=== PATIENT | male | born 1990 | race Caucasian/White ===

== ENCOUNTER 2021-01-20 20:32 | Emergency (ER) | payer OTHER ==
[2021-01-20 20:58] VITALS: BP 153/76
--- NOTE | 2021-01-20 21:33 | ED Physician Documentation ---
History of Present Illness - Stated complaint Stated Complaint: LYME DISEASE EXPOSURE - Chief complaint Chief Complaint: General - History obtained from History obtained from: Patient - Additonal information Additional information: He was staying in a cabin with his father, his father evidently got erythema migrans and is being treated for same despite no evident ticks. He does not have any symptoms or rashes but wonders if he should be treated as well. He would also like a Covid test. Review of Systems Constitutional: denies: Fever, Chills Nose: denies: Rhinorrhea / runny nose, Congestion Throat: denies: Sore throat Cardiac: denies: Chest pain / pressure, Palpitations Respiratory: denies: Dyspnea, Cough PD PAST MEDICAL HISTORY - Present Medications Home Medications: Ambulatory Orders Medication Instructions Recorded Confirmed Doxycycline Hyclate 100 mg PO BID #20 01/20/21 - Allergies Allergies/Adverse Reactions: Allergies Allergy/AdvReac Type Severity Reaction Status Date / Time morphine AdvReac Emesis Verified 01/20/21 20:59 PD ED PE NORMAL - Vitals Vital signs reviewed: Yes - General General: Alert and oriented X 3, No acute distress - Derm Derm: No rash - Neuro Neuro: Alert and oriented X 3, Normal speech Results - Vitals Vitals: Vital Signs - 24 hr 01/20/21 20:56 Temperature 36.0 C L Heart Rate 74 Respiratory 18 Rate Blood Pressure 153/76 H O2 Saturation 97 Oxygen O2 Source Room air PD MEDICAL DECISION MAKING - ED course ED course: We discussed that its not even potentially clear that his father has erythema migrans. Patient was thoroughly examined and has no tics or rashes. We discussed options including watchful waiting versus upfront treatment. After discussion he would like a watch and wait prescription for doxycycline. He also wanted a Covid test for travel. Departure - Departure Disposition: 01 Home, Self Care Clinical Impression: Suspected Lyme disease Condition: Good Record reviewed to determine appropriate education?: Yes Instructions: ED Facts Tick Prescriptions: Doxycycline Hyclate 100 mg PO BID #20 Comments: As discussed, there is no sign of Lyme disease at this point, that said if you develop joint aches, rash, or anything other concerns as we discussed you can go ahead and start the doxycycline. If you start doxycycline make sure to stay out of the sun as it will make you sun sensitive. You have a Covid test pending. You need to self quarantine until the result is done and negative. Do not leave your house. Do not get near anybody. The results should be done in 48 to 72 hours. We will call with a positive result, the fastest way to get a negative result for confirmation though is to go to the hospital website at [email or web address], click on the my [facility] tab and sign up for the patient portal. If any friends or family get sick and would like to have a Covid test done, but do not have signs or symptoms that would necessitate being hospitalized, we encourage testing through our coronavirus swabbing station, call [phone] to schedule an appointment.
== END 2021-01-20 21:48 | disposition home or self-care (01) ==
LOC: ED 20:32
DX: Z20.818 Contact with and (suspected) exposure to other bacterial communicable diseases (principal); Z20.822 Contact with and (suspected) exposure to COVID-19
CPT/HCPCS: 99283

== ENCOUNTER 2021-02-06 13:02 | Outpatient (CLI) | payer OTHER | END 2021-02-06 13:03 | disposition EMS.NT | LOC: EMS 13:02 | DX: R41.82 Altered mental status, unspecified (principal) ==